=== PATIENT | male | born 1990 | race Caucasian/White ===

== ENCOUNTER 2017-05-28 03:21 | Emergency (ER) | payer OTHER ==
[~2017-05-28] VITALS: Ht 165.1 cm; Wt 72.6 kg
[2017-05-28 03:35] VITALS: BP_SYST 123
[2017-05-28 04:06] VITALS: BP_SYST 121
== END 2017-05-28 04:06 ==
LOC: SED 03:21
DX: S05.11XA Contusion of eyeball and orbital tissues, right eye, initial encounter (principal); Y04.0XXA Assault by unarmed brawl or fight, initial encounter; Y93.89 Activity, other specified; Y92.098 Other place in other non-institutional residence as the place of occurrence of the external cause; Y99.8 Other external cause status
CPT/HCPCS: 99283; 99285